=== PATIENT | female | born 2000 | race Caucasian/White ===

== ENCOUNTER 2024-05-08 14:55 | Emergency (ER) | payer OTHER, SELFPAY ==
[2024-05-08] VITALS (23 sets, daily range): BP systolic 100–135; BP diastolic 49–87; PULSE 84–107; RESP 0–24; TEMP 37.3; O2SAT 97–100; BMI 24.1
[2024-05-08 16:30] LABS: Basophils Absolute Auto 0.03 K/uL (0.00-0.30); Basophils Percent Auto 0.5 % (0.0-3.0); Hematocrit 41.1 % (33.0-51.0); Immature Granulocytes Abs Auto 0.01 K/uL (0.00-0.30); Immature Granulocytes Pct Auto 0.2 %; Lymphocytes Absolute Auto 1.48 K/uL (0.90-2.90); Lymphocytes Percent Auto 25.4 % (20-44); Mean Corpuscular HGB Conc 34 gm/dL (32-36); Mean Corpuscular Hemoglobin 30 pg (26-34); Mean Corpuscular Volume 89 fL (80-100); Monocytes Percent Auto 8.2 % (0.0-11.0); Neutrophils Absolute Auto 3.83 K/uL (1.7-7.0); Neutrophils Percent Auto 65.7 % (42.0-72.0); Platelet Count* 295 K/uL (140-440); RDW Coefficient of Variation % 11.4 % (11.5-15.5); Red Blood Count 4.64 m/uL (4.00-5.20); White Blood Count* 5.83 K/uL (4.50-11.00)
[2024-05-08 16:34] LABS: Troponin, Point-of-Care* 0.01 ng/ml (0.01-0.04)
[2024-05-08 16:44] LABS: Albumin* 5.1 g/dL (3.3-5.0); Chloride* 103 mmol/L (96-114); Potassium* 3.9 mmol/L (3.6-5.1); Sodium* 139 mmol/L (135-149)
[2024-05-08 16:45] LABS: Slide Review Reflex No
[2024-05-08 16:46] LABS: Creatinine* 0.6 mg/dL (0.5-1.5); Est. Creatinine Clearance* 111.92; Estimated Glomerular Filt Rate 131 ml/min
[2024-05-08 16:47] LABS: Alanine Aminotransferase* 171 U/L (4-35); Alkaline Phosphatase* 110 U/L (40-150); Anion Gap 12 mEq/L (7-15); Aspartate Amino Transferase* 55 U/L (12-35); Bilirubin Total* 1.1 mg/dL (0.1-1.5); Blood Urea Nitrogen* 15 mg/dL (5-24); Calcium* 10.4 mg/dL (8.4-10.6); Carbon Dioxide* 24 mmol/L (20-32); Glucose* 93 mg/dL (60-115); Total Protein* 8.1 g/dL (6.0-8.3)
[2024-05-08 16:48] LABS: Magnesium* 1.9 mg/dL (1.5-2.6)
[2024-05-08 16:51] LABS: D Dimer Quantitative* 0.33 ug/ml (0.00-0.50)
--- NOTE | 2024-05-08 16:55 | ED.GENADULT ---
HPI - General Adult General Time Seen by Provider: 16:56 Date Seen: 05/08/24 Chief complaint: Arrhythmia/Palpitations Stated complaint: Elevated heartrate Time Seen by Provider: 05/08/24 16:05 Source: patient Mode of arrival: ambulatory Limitations: no limitations History of Present Illness HPI narrative: Meg is a 23-year-old female past medical history includes anxiety presents emerged department via private car with friends with elevated heart rate. 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 primary care provider recommended a Holter monitor, she wore for 3-4 days, there was a reading of SVT at 4:00 p.m. registered at 190 heart rate. patient gets 2-3 episodes daily of this elevated heart rate. patient did take 0.5 mg and Xanax this morning, it is helped with her current symptoms. no history of any passing out or seizure activity associated with the elevated heart rate, she does get readings that are around 190 on her Apple watch. there is some cardiac disease with her grandfather and father, no history of any thyroid abnormalities. patient denies any fever chills, she denies any nausea vomiting or abdominal pain, no urinary complaints, her periods have been normal, she denies any drug use or alcohol use. Patient is scheduled to see cardiology in [place] over the next few weeks. Related Data Home Medications ?Medication ?Instructions ?Recorded ?Confirmed alprazolam 0.5 mg tablet (Xanax) 0.5 mg PO BID-TID PRN 05/08/24 05/08/24 melatonin 10 mg capsule 10 mg PO QHS 05/08/24 05/08/24 vilazodone 10 mg tablet (Viibryd) 10 mg PO DAILY 05/08/24 05/08/24 Previous Rx's ?Medication ?Instructions ?Recorded metoprolol succinate 25 mg 12.5 mg (1/2 x 25 mg) PO DAILY #14 05/08/24 tablet,extended release 24 hr tabs Allergies Allergy/AdvReac Type Severity Reaction Status Date / Time No Known Drug Allergies Allergy Verified 05/08/24 15:06 Review of Systems Status of ROS: Reports: 10 or more systems reviewed and unremarkable except as noted in History and below PFSH PFSH Social History Smoking Status: Never smoker Do you use any of these nicotine containing products: None How often do you have a drink containing alcohol: never How often do you have six or more drinks on one occasion: Never AUDIT-C Alcohol total score: 0 Non-prescribed substance use: denies use Exam Narrative: Exam Narrative: general: no obvious distress sitting comfortably HEENT: pupils equal round reactive to light, extraocular muscles intact heart: sinus tachycardia lungs: clear to auscultation bilaterally abdomen: was soft nontender neuro: alert awake and oriented x3, GCS 15 pysch: mildly anxious. normal mood and affect Const: Vital Signs, click to edit/add: Vital Signs - 24 hr 05/08/24 15:08 05/08/24 15:30 05/08/24 15:32 Temperature 99.1 F Pulse Rate 98 97 Pulse Rate [Pulse Oximeter] 98 Respiratory Rate 18 0 L 7 L Blood Pressure 135/76 Blood Pressure [Ri ght Upper Arm] 109/72 Pulse Oximetry 98 98 97 Oxygen Delivery Me thod Room Air 05/08/24 15:45 05/08/24 16:00 05/08/24 16:02 Temperature Pulse Rate 89 98 90 Pulse Rate [Pulse Oximeter] Respiratory Rate 14 11 L 16 Blood Pressure 100/63 Blood Pressure [Ri ght Upper Arm] Pulse Oximetry 100 98 100 Oxygen Delivery Me thod 05/08/24 16:15 05/08/24 16:30 05/08/24 16:42 Temperature Pulse Rate 107 H 85 91 Pulse Rate [Pulse Oximeter] Respiratory Rate 13 11 L 8 L Blood Pressure 111/87 Blood Pressure [Ri ght Upper Arm] Pulse Oximetry 100 100 100 Oxygen Delivery Me thod 05/08/24 16:45 05/08/24 17:00 05/08/24 17:02 Temperature Pulse Rate 99 92 100 Pulse Rate [Pulse Oximeter] Respiratory Rate 21 12 9 L Blood Pressure 109/58 L Blood Pressure [Ri ght Upper Arm] Pulse Oximetry 99 100 98 Oxygen Delivery Me thod 05/08/24 17:03 05/08/24 17:15 05/08/24 17:30 Temperature Pulse Rate 95 91 99 Pulse Rate [Pulse Oximeter] Respiratory Rate 9 L 11 L 6 L Blood Pressure Blood Pressure [Ri ght Upper Arm] Pulse Oximetry 99 100 97 Oxygen Delivery Me thod 05/08/24 17:31 05/08/24 17:49 05/08/24 18:00 Temperature Pulse Rate 96 95 97 Pulse Rate [Pulse Oximeter] Respiratory Rate 15 21 24 Blood Pressure 107/64 Blood Pressure [Ri ght Upper Arm] Pulse Oximetry 98 98 100 Oxygen Delivery Me thod 05/08/24 18:02 05/08/24 18:15 05/08/24 18:30 Temperature Pulse Rate 101 H 99 86 Pulse Rate [Pulse Oximeter] Respiratory Rate 9 L 18 23 Blood Pressure 100/53 L Blood Pressure [Ri ght Upper Arm] Pulse Oximetry 100 100 100 Oxygen Delivery Me thod 05/08/24 18:31 05/08/24 18:45 Temperature Pulse Rate 84 Pulse Rate [Pulse Oximeter] Respiratory Rate 10 L 14 Blood Pressure 122/49 L Blood Pressure [Ri ght Upper Arm] Pulse Oximetry 99 Oxygen Delivery Me thod Course Course ED Course: Aidet performed, vitals show mild tachycardia, otherwise stable, workup will include SHAVL-[id number] nasopharyngeal swab, EKG, CBC, TSH, D-dimer, magnesium, CMP, UDS, serum test, XR chest PA and lateral, will likely reach out to Cardiology Jocelin Cormier for further recommendations. Patient's previous Holter monitor did show a run of SVT at 190. Patient would not require an IV at this time, she will receive 0.5 mg oral Ativan for her anxiety, differential diagnosis include but not limited to psychosocial stress, thyroid abnormalities, heart failure, atrial fibrillation, SVT, ventricular tachycardia and ventricular fibrillation. This includes life-threatening complications of V-tach and VFib. Reevaluation(s) Reevaluation #1: EKG showed normal sinus rhythm, no acute ST changes, point of care troponin is negative, CBC showed no leukocytosis or anemia, comprehensive metabolic panel showed normal electrolytes and renal function, normal magnesium, UDS negative, viral swabs negative, test negative, D-dimer within normal limits, imaging showed no acute cardiopulmonary process. Patient had no abnormalities noted on monitor technician, she is feeling better after above care given. Spoke with Cardiology Dr. Parham, recommendations were for starting low dose Metoprolol succinate 12.5 mg once daily since patient's SC interval was within normal limits, and they will contact her for follow up with them. Discussed with patient she was in agreement this plan, return precautions give. Vital Signs Vital signs: Initial Vital Signs Temperature 99.1 F 05/08/24 15:08 Temperature Source Temporal Artery Scan 05/08/24 15:08 Pulse Rate 98 05/08/24 15:08 Pulse Rhythm Regular 05/08/24 15:08 Respiratory Rate 18 05/08/24 15:08 Blood Pressure 109/72 05/08/24 15:08 Blood Pressure Mean 84 05/08/24 15:08 Blood Pressure Position Sitting 05/08/24 15:08 Pulse Oximetry 98 05/08/24 15:08 Oxygen Delivery Method Room Air 05/08/24 15:08 Vital Signs Temperature 99.1 F 05/08/24 15:08 Pulse Rate 98 05/08/24 15:08 Respiratory Rate 18 05/08/24 15:08 Blood Pressure 109/72 05/08/24 15:08 Pulse Oximetry 98 05/08/24 15:08 Oxygen Delivery Method Room Air 05/08/24 15:08 Temperature 99.1 F 05/08/24 15:08 Pulse Rate 84 05/08/24 18:31 Respiratory Rate 14 05/08/24 18:45 Blood Pressure 122/49 L 05/08/24 18:31 Pulse Oximetry 99 05/08/24 18:31 Oxygen Delivery Method Room Air 05/08/24 15:08 Medications Administered Medications: Discontinued Medications Generic Name Dose Route Start Last Admin Trade Name Freq PRN Reason Stop Dose Admin Lorazepam 0.5 mg 05/08/24 16:54 05/08/24 17:01 Lorazepam 0.5 Mg Tablet PO 05/08/24 16:55 0.5 mg ONCE ONE Administration Medical Decision Making Lab Data Labs: Lab Results 05/08/24 05/08/24 05/08/24 Range/Units 16:11 16:20 16:24 WBC 5.83 (4.50-11.00) K/uL RBC 4.64 (4.00-5.20) m/uL Hgb 14.0 (12.0-16.0) gm/dL Hct 41.1 (33.0-51.0) % MCV 89 (80-100) fL MCH 30 (26-34) pg MCHC 34 (32-36) gm/dL RDW Coeff of Zita 11.4 L (11.5-15.5) % Plt Count 295 (140-440) K/uL Neut % (Auto) 65.7 (42.0-72.0) % Lymph % (Auto) 25.4 (20-44) % Trinity % (Auto) 8.2 (0.0-11.0) % Eos % (Auto) 0.0 (0.0-7.0) % Baso % (Auto) 0.5 (0.0-3.0) % Neut # (Auto) 3.83 (1.7-7.0) K/uL Lymph # (Auto) 1.48 (0.90-2.90) K/uL Trinity # (Auto) 0.50 (0.00-0.90) K/UL Eos # (Auto) 0.00 (0.00-0.50) K/uL Baso # (Auto) 0.03 (0.00-0.30) K/uL Abs Immat Gran (auto) 0.01 (0.00-0.30) K/uL Imm/Tot Granulo (auto) 0.2 % D-Dimer Quant (PE/DVT) 0.33 (0.00-0.50) ug/ml Sodium 139 (135-149) mmol/L Potassium 3.9 (3.6-5.1) mmol/L Chloride 103 (96-114) mmol/L Carbon Dioxide 24 (20-32) mmol/L Anion Gap 12 (7-15) mEq/L BUN 15 (5-24) mg/dL Creatinine 0.6 (0.5-1.5) mg/dL Estimated Creat Clear 111.92 Estimated GFR 131 ml/min Glucose 93 (60-115) mg/dL Calcium 10.4 (8.4-10.6) mg/dL Magnesium 1.9 (1.5-2.6) mg/dL Total Bilirubin 1.1 (0.1-1.5) mg/dL AST 55 H (12-35) U/L ALT 171 H (4-35) U/L Alkaline Phosphatase 110 (40-150) U/L Total Protein 8.1 (6.0-8.3) g/dL Albumin 5.1 H (3.3-5.0) g/dL TSH 0.968 (0.270-4.20) uIU/mL HCG, Qual (Negative) HCG, Quant Urine Opiates Screen (Negative) Ur Oxycodone Screen (Negative) Urine Methadone Screen (Negative) Ur Barbiturates Screen (Negative) U Tricyclic Antidepress (Negative) Ur Phencyclidine Scrn (Negative) Ur Amphetamines Screen (Negative) U Methamphetamines Scrn (Negative) U Benzodiazepines Scrn (Negative) Urine Cocaine Screen (Negative) U Marijuana (THC) Screen (Negative) Ur Drug Screen Comment SARS-CoV-2 (PCR) Negative SARS-CoV-2 (Negative) Influenza Type A (PCR) Negative PCR FLU A (Negative) Influenza Type B (PCR) Negative PCR FLU B (Negative) RSV (PCR) Negative PCR RSV (Negative) POC Troponin I 0.01 (0.01-0.04) ng/ml 05/08/24 05/08/24 Range/Units 16:37 16:56 WBC (4.50-11.00) K/uL RBC (4.00-5.20) m/uL Hgb (12.0-16.0) gm/dL Hct (33.0-51.0) % MCV (80-100) fL MCH (26-34) pg MCHC (32-36) gm/dL RDW Coeff of Zita (11.5-15.5) % Plt Count (140-440) K/uL Neut % (Auto) (42.0-72.0) % Lymph % (Auto) (20-44) % Trinity % (Auto) (0.0-11.0) % Eos % (Auto) (0.0-7.0) % Baso % (Auto) (0.0-3.0) % Neut # (Auto) (1.7-7.0) K/uL Lymph # (Auto) (0.90-2.90) K/uL Trinity # (Auto) (0.00-0.90) K/UL Eos # (Auto) (0.00-0.50) K/uL Baso # (Auto) (0.00-0.30) K/uL Abs Immat Gran (auto) (0.00-0.30) K/uL Imm/Tot Granulo (auto) % D-Dimer Quant (PE/DVT) (0.00-0.50) ug/ml Sodium (135-149) mmol/L Potassium (3.6-5.1) mmol/L Chloride (96-114) mmol/L Carbon Dioxide (20-32) mmol/L Anion Gap (7-15) mEq/L BUN (5-24) mg/dL Creatinine (0.5-1.5) mg/dL Estimated Creat Clear Estimated GFR ml/min Glucose (60-115) mg/dL Calcium (8.4-10.6) mg/dL Magnesium (1.5-2.6) mg/dL Total Bilirubin (0.1-1.5) mg/dL AST (12-35) U/L ALT (4-35) U/L Alkaline Phosphatase (40-150) U/L Total Protein (6.0-8.3) g/dL Albumin (3.3-5.0) g/dL TSH (0.270-4.20) uIU/mL HCG, Qual Negative (Negative) HCG, Quant Cancelled Urine Opiates Screen Negative (Negative) Ur Oxycodone Screen Negative (Negative) Urine Methadone Screen Negative (Negative) Ur Barbiturates Screen Negative (Negative) U Tricyclic Antidepress Negative (Negative) Ur Phencyclidine Scrn Negative (Negative) Ur Amphetamines Screen Negative (Negative) U Methamphetamines Scrn Negative (Negative) U Benzodiazepines Scrn Negative (Negative) Urine Cocaine Screen Negative (Negative) U Marijuana (THC) Screen Negative (Negative) Ur Drug Screen Comment See Note SARS-CoV-2 (PCR) (Negative) Influenza Type A (PCR) (Negative) Influenza Type B (PCR) (Negative) RSV (PCR) (Negative) POC Troponin I (0.01-0.04) ng/ml Discharge Plan Discharge Clinical Impression: Palpitations, Anxiety Patient Disposition: Home, Self-Care Condition: Improved Instructions: Heart Palpitations (ED), Anxiety (ED) Additional Instructions: Will be contacted by [facility] for follow-up, to take metoprolol succinate 12.5 mg daily. Return if any persistent or worsening symptoms. Prescriptions: New metoprolol succinate 25 mg tablet extended release 24 hr 12.5 mg PO DAILY Qty: 14 0RF No Action vilazodone [Viibryd] 10 mg tablet 10 mg PO DAILY Rx Instructions: must administer with a meal/food alprazolam [Xanax] 0.5 mg tablet 0.5 mg PO BID-TID PRN melatonin 10 mg capsule 10 mg PO QHS Follow Up/Referrals: Provider,Not a Local [Primary Care Provider] - Stand Alone Forms: [employer] Info Instructions
[2024-05-08 16:57] LABS: Amphetamine Screen Urine Negative (Negative); Barbiturate Screen Urine Negative (Negative); Benzodiazepines Screen Urine Negative (Negative); Cannabinoid Screen Urine Negative (Negative); Cocaine Screen Urine Negative (Negative); Methadone Screen Urine Negative (Negative); Methamphetamines Screen Urine Negative (Negative); Opiate Screen Urine Negative (Negative); Oxycodone Screen Urine Negative (Negative); Phencyclidine Screen Urine Negative (Negative); Tricyclic Antidepressant Urine Negative (Negative)
[2024-05-08] MEDS: LORazepam 0.5 MG TABLET PO (17:01)
[2024-05-08 17:14] LABS: HCG Qualitative Serum* Negative (Negative)
--- OUTSIDE RECORDS SUMMARY | 2024-05-08 17:18 | XMS_ITS | Patient Health Record ---
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 APPT- [facility] SVT Diagnosis 1 Supraventricular tac hycardia, unspecified (I47.10) Referring Provider First Name Elif Referring Provider Last Name Davidson Referring Provider Speciality Family Med icine Referred Organization [facility] Referred Provider Roque Grant Referred Address [address],[place],[address], Referred Provider Specialty Cardiology Referral Priority Routine Medications Medication SIG (Take, Route, Frequency, Duration) Notes Start Date End Date Status Azithromycin 200 MG/5ML 10 ml Orally Once a day for 5 days 07/12/2013 Active Cheratussin AC 100-10 MG/5ML 2.5 - 5 ml as needed Orally every 6 hrs for 5 days 07/12/2013 Active Cephalexin *please review f or potential update for e-prescription and drug interaction check* Active dexAMETHasone *please review f or potential update for e-prescription and drug interaction check* Active POLYETHYLENE GLYCOL 3350 142 MG/ML Oral Solution POLYETHYLENE GLYCOL 3350 142 MG/ML Oral Solution 11/17/2013 Active Ibuprofen Ibuprofen 01/27/2014 Active ZyrTEC Childrens Allergy *please review for potential update for e-prescription and drug interaction check* Active Plan Of Treatment Pending Test Test Name Order Date Strep Screen 07/12/2013 Insurance Providers Payer Name Payer Address Payer Phone Subscriber Number Group Number Insured Name Patient Relationship to Insured Coverage Start Date Coverage End Date [employer] [address] [place] [phone] [id number] Meg Orellana Self - patient is the insured Medical (General) History Medical History History ICD Code allergies
[2024-05-08 17:27] LABS: PCR FLU A Negative PCR FLU A (Negative); PCR FLU B Negative PCR FLU B (Negative); PCR RSV Negative PCR RSV (Negative); SARS PCR* Negative SARS-CoV-2 (Negative)
[2024-05-08 18:17] LABS: Thyroid Stimulating Hormone* 0.968 uIU/mL (0.270-4.20)
== END 2024-05-08 18:51 | disposition home or self-care (01) ==
PROVIDERS: Emergency Provider Student in an Organized Health Care Education/Training Program
DX: R00.2 Palpitations (principal); F41.9 Anxiety disorder, unspecified
CPT/HCPCS: 36415; 71046; 80053; 80306; 83735; 84443; 84484; 84702; 84703; 85025; 85379; 87631; 99283; 99284; A9270

== ENCOUNTER 2024-10-08 16:14 | Emergency (ER) | payer BC, SELFPAY ==
--- OUTSIDE RECORDS SUMMARY | 2024-06-26 09:45 | XMS_ITS ---
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 Name Role Phone Elif Feng Primary Care Provider Unavail Adiel Mitchell [phone] Encounters Encounter Location Date Provider Diagnosis [facility] [address] [place] [address] 06/26/2024 Adiel Sparks Plan Of Treatment No Information Progress Notes * Sylvain SOOLeDOB: 3 (24 yo F)Acc No.[id number]:06/26/2024 Patient: Meg Crzu Provider: Gely Sparks MD :2000 A ge:23 Y S ex:Female Date:06/26/2024 Address[place], [id number] Pcp:KURTIS Esquivel Check In:02:43 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
--- OUTSIDE RECORDS SUMMARY | 2024-06-27 05:15 | XMS_ITS ---
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 Name Role Phone Elif Feng Primary Care Provider Adiel Guthrie [phone] Encounters Encounter Location Date Provider Diagnosis [facility] [address] [place] [address] 06/27/2024 Adiel Sparks Plan Of Treatment No Information Progress Notes * Sylvain SOLOeDOB: [birth year] (24 yo F)Acc No.[id number]:06/27/2024 Patient: Meg Cruz Provider: Gely Sparks MD :2000 A ge:23 Y S ex:Female Date:06/27/2024 Address[place] Pcp:KURTIS Esquivel Check In:10:03 AM CSTCheck O ut:10:05 AM 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
--- OUTSIDE RECORDS SUMMARY | 2024-10-08 16:17 | XMS_ITS | Patient Health Record ---
Author Organization [facility] Address [address] [place] [address] Care Team Providers Care Rag Baler Name Role Phone Elif Feng Primary Care Provider Unavail able Adiel Sparks Unavailable [phone] Allergies No Known Allergies Results Component Value Reference Range Notes Echo Complete [id number] Reviewed date:06/26/2024 02:29:14 PM Interpretation: Performing Lab: Notes/Report: Stress Test, [id number] Reviewed date:06/26/2024 02:28:49 PM Interpretation: Performing Lab: Notes/Report: Echo Complete [id number] Reviewed date:07/09/2024 04:11:04 PM Interpretation: Performing Lab: Notes/Report: Cardiopulmonary Services Name: MEG SOLO Study Date: 06/27/2024 : 2000 Patient Location: [facility] Age: 23 yrs Gender: Female HR: 78 Reason For Study: palp, cp, sob Interpretation Summary The left ventricle is normal in size. Left ventricular systolic function is normal. Left Ventricular Function is estimated to be 55-60%. There is trace tricuspid regurgitation. There is no pericardial effusion. Recommendations Will continue to follow regularly. Continue present medication. Left Ventricle The left ventricle is normal in size. There is normal left ventricular wall thickness. Left ventricular systolic function is normal. Left Ventricular Function is estimated to be 55-60%. Right Ventricle The right ventricle is normal size. Atria The left atrial size is normal. Right atrial size is normal. Pericardium/Pleural There is no pericardial effusion. There is no pleural effusion. Mitral Valve The mitral valve leaflets appear normal. There is no evidence of stenosis, fluttering, or prolapse. Aortic Valve The aortic valve is normal in structure and function. Tricuspid Valve The tricuspid valve is normal. There is trace tricuspid regurgitation. Pulmonic Valve The pulmonic valve leaflets are thin and pliable; valve motion is normal. Trace pulmonic valvular regurgitation. MMode/2D Measurements & Calculations RVDd: 3.0 cm LVIDd: 3.1 cm FS: 28.2 % IVSd: 0.62 cm LVIDs: 2.2 cm EDV(Teich): 38.9 ml ESV(Teich): 17.1 ml EF(Teich): 55.9 % Ao root diam: 2.6 cm asc Aorta Diam: 2.3 cm LVOT diam: 1.9 cm Ao root area: 5.2 cm2 LVOT area: 3.0 cm2 ACS: 1.8 cm LA dimension: 2.1 cm Time Measurements Aortic HR: 76.7 BPM MM HR: 79.5 BPM Doppler Measurements & Calculations MV E max vlad: 116.9 cm/sec MV dec slope: 978.7 cm/sec2 Ao V2 max: 121.7 cm/sec MV A max vlad: 61.3 cm/sec MV dec time: 0.12 sec Ao max P.9 mmHg MV E/A: 1.9 Ao V2 mean: 90.0 cm/sec Ao mean P.6 mmHg Ao V2 VTI: 25.2 cm ROSA(I,D): 2.5 cm2 ROSA(V,D): 2.6 cm2 LV V1 max P.5 mmHg CO(LVOT): 4.9 l/min PA V2 max: 73.0 cm/sec LV V1 mean P.1 mmHg SV(LVOT): 63.7 ml PA max P.1 mmHg LV V1 max: 106.4 cm/sec LV V1 mean: 66.3 cm/sec LV V1 VTI: 21.6 cm PI end-d vlad: 178.3 cm/sec TR max vlad: 215.9 cm/sec RAP systole: 10.0 mmHg TR max P.7 mmHg RVSP(TR): 28.7 mmHg Ordering Physician: Adiel Sparks Referring Physician: Adiel Sparks Performed By: Sherlyn Palm, Echo Echo Complete [id number] Reviewed date:07/09/2024 04:11:04 PM Interpretation: Performing Lab: Notes/Report: [id number] Reason For Referral Reason Appt 06/26/24 SVT Diagnosis 1 Supraventricular tac hycardia, unspecified (I47.10) Referring Provider First Name Elif Referring Provider Last Name Davidson Referring Provider Speciality [facility] Referred Organization [facility] Referred Provider Adiel Sparks Referred Address [address] [place] [address],[place], [place],[address], Referred Provider Specialty Cardiology Referral Priority Routine Medications Medication SIG (Take, Route, Frequency, Duration) Notes Start Date End Date Status Vilazodone HCl 20 MG Tablet TAKE 0.5 Tablet BY MOUTH ONCE DAILY WITH FOOD Oral; Duration: 90 days Active Lo Loestrin Fe 1 MG-10 MCG / 10 MCG Tablet TAKE 1 Tablet BY MOUTH ONCE DAILY Oral; Duration: 28 Days Active Metoprolol Succinate ER 25 MG Tablet Extended Release 24 Hour 0.5 tab Oral Once a day; Duration: 30 days Active ALPRAZolam 0.5 MG Tablet TAKE 1 Tablet B Y MOUTH ONCE DAILY NEEDED FOR ANXIETY Oral; Duration: 30 days Active Social History Tobacco Use: Social History Observation Description Date Details (start date - stop date) Former Smoker NA - NA Social History Drugs/Alcohol: Social Info Question Answer Notes Caffeine Intake: 1 cup, not jason y, couple days out of the week Tobacco Use: Social Info Question Answer Notes Tobacco Control (Standard) Tobacco use: Former smoker How long has it been since you last smoked? 6-12 months Additional Details Category Social Info Options Details Drugs/Alcohol: Do you drink alcohol? 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 [employer] ;Social History(Smoking(MU):):no ; Problems Problem Type SNOMED Code ICD Code Onset Dates Problem Status W/U Status Risk Notes Problem Dyspnea (619192122) SOB (shortne ss of breath) (R06.02) Active confirmed Problem Palpitations (39701651) Palpitation (R00.2) Active confirmed Problem Chest pain (92640033) Chest pain (R07.9) Active confirmed Problem Postural orthostatic tachycardia syndrome (disorder) (411241014) POTS (postural orthostatic tachycardia syndrome) (G90.A) Active confirmed Problem Supraventricular tachycardia (3458813) SVT (supraventricu lar tachycardia) (I47.10) Active confirmed Vital Signs Heart Rate 87 /min 06/27/2024 Oximetry 92 % 06/27/2024 Blood pressure diastolic 72 mm Hg 06/27/2024 Weight-kg 60.15 kg 06/27/2024 Height 58 in 06/27/2024 Blood pressure systolic 108 mm Hg 06/27/2024 Weight 132.6 lbs 06/27/2024 BMI 27.71 kg/m2 06/27/2024 Encounters Encounter Location Date Provider Diagnosis [facility] [address] [address] 06/26/2024 Adiel Sparks [facility] [address] [address] 06/27/2024 Adiel Sparks [facility] [address] [place] [address], [place] [address] 06/26/2024 Adiel Sparks POTS (postural orthostatic tachycardia syndrome) G90.A ; SVT (supraventricular tachycardia) I47.10 ; Palpitation R00.2 ; Chest pain R07.9 and SOB (shortness of breath) R06.02 [facility] [address] [place] [address], [place] [address] 06/27/2024 Adiel Sparks POTS (postural orthostatic tachycardia syndrome) G90.A ; SVT (supraventricular tachycardia) I47.10 ; Palpitation R00.2 ; Chest pain R07.9 and SOB (shortness of breath) R06.02 Assessments Encounter Date Diagnosis (ICD Code) Assessment Notes Treatment Notes Treatment Clinical Notes Section Notes 06/26/2024 POTS (postural orthostatic tachycardia syndrome) (ICD-10 - G90.A) Talked about the potential diagnosis of POTS. As part of treatment frankel we talked about hydration compression stockings and salt intake. EKG in office today indication is palpitation shortness of breath chest tightness chest pain findings are sinus rhythm heart rate is 92 essentially normal EKG 06/26/2024 SVT (supraventricul ar tachycardia) (ICD-10 - I47.10) Talked about a potential diagnosis of SVT. It is not clear at this point. She is feeling better with beta blocking agent. For now continue. Eventually she will require evaluation by electrophysiolog y. EKG in office today indication is palpitation shortness of breath chest tightness chest pain findings are sinus rhythm heart rate is 92 essentially normal EKG 06/27/2024 POTS (postural orthostatic tachycardia syndrome) (ICD-10 - G90.A) Talked about the potential diagnosis of POTS. As part of treatment frankel we talked about hydration compression stockings and salt intake. 06/27/2024 SVT (supraventricul ar tachycardia) (ICD-10 - I47.10) Talked about a potential diagnosis of SVT. She is feeling better with beta blocking agent. For now continue. Eventually she will require evaluation by electrophysiolog y. 06/27/2024 Palpitation (ICD-10 - R00.2) 06/26/2024 Palpitation (ICD-10 - R00.2) EKG in office today indication is palpitation shortness of breath chest tightness chest pain findings are sinus rhythm heart rate is 92 essentially normal EKG 06/26/2024 Chest pain (ICD-10 - R07.9) We talked about treadmill stress test. EKG in office today indication is palpitation shortness of breath chest tightness chest pain findings are sinus rhythm heart rate is 92 essentially normal EKG 06/27/2024 Chest pain (ICD-10 - R07.9) The patient had a exercise stress test. It was nondiagnostic test due to suboptimal heart rate response. She was only able to obtain 80% of maximal age-predicted heart rate. But there was no ST depression noted. 06/27/2024 SOB (shortness of breath) (ICD-10 - R06.02) Echo from June 2024 showed ejection fraction 55 to 60%. There was no significant valve disease. There was no pericardial effusion. 06/26/2024 SOB (shortness of breath) (ICD-10 - R06.02) Obtain echocardiogram. EKG in office today indication is palpitation shortness of breath chest tightness chest pain findings are sinus rhythm heart rate is 92 essentially normal EKG 06/26/2024 Other Marc Tolentino am scribing for Adiel Sparks MD. Adiel Tolentino MD, personally performed the services prescribed in this documentation , as scribed by Mrac Cade and it is both accurate and complete. EKG in office today indication is palpitation shortness of breath chest tightness chest pain findings are sinus rhythm heart rate is 92 essentially normal EKG 06/27/2024 Other Marc Tolentino am scribing for Adiel Sparks MD. Adiel Tolentino MD, personally performed the services prescribed in this documentation , as scribed by Marc Cade and it is both accurate and complete. Plan Of Treatment Pending Test Test Name Order Date Electrocardiogram (EKG) - 96503 06/27/19 25 Strep Screen 07/12/2013 Insurance Providers Payer Name Payer Address Payer Phone Subscriber Number Group Number Insured Name Patient Relationship to Insured Coverage Start Date Coverage End Date [employer] [address] [place] [phone] [id number] Meg Solo Self - patient is the insured Medical (General) History Medical History History ICD Code Problem:Constipation (disorder) , Status :: Active Depression anxiety covid vaccinated Surgical History Surgery Date(Month/Year) right ankle- tendon repair Hospitalization History Reason Date(Month/Year) Holter and EKG @ per [facility] Cede[facility] 5
[2024-10-08 16:18] VITALS: BP 123/76; PULSE 94; RESP 14; TEMP 36.8; O2SAT 99; BMI 20.1
--- NOTE | 2024-10-08 18:09 | ED_ITS ---
HPI - General Adult General Time Seen by Provider: 18:09 Date Seen: 10/08/24 Chief complaint: Anxiety Stated complaint: Heart issues, sob, chest pain Time Seen by Provider: 10/08/24 18:03 Source: patient, RN notes reviewed and old records reviewed Mode of arrival: ambulatory Limitations: no limitations History of Present Illness HPI narrative: This 24-year-old female with underlying history of episode of SVT earlier with history of palpitations and anxiety is coming in with chest pain. She notes over the last week she would have some chest discomfort, this was more consistent with her usual chest discomfort with her anxiety. Today while at work at [employer], she was on lunch break, and started noticing a squeezing- type chest pain in her chest. It would come and go, at times felt severe. Around 3:00 p.m. or so, she was talking with coworkers and started to feel short of breath in dizzy with it. She tried to call the Urgent Care to go there but they requested she come here. She is overall feeling better. She has not been sick with anything, no cough or cold symptoms. She is not on contraceptives. They are very careful in use barrier protection all the time. No GI symptoms with this. Unfortunately due to the acuity and volume in the ED, patient has had a bit of weight to get back into an ER room. She does not feel her heart rate was fast during this, actually her pulse was low with the taking of 25 mg of metoprolol. She was seen here in April when a Holter monitor did show a short run of SVT at 190 beats per minute. She was started on metoprolol 12.5 mg. She had difficulty with insurance in being able to see a activities manager here in [place], did see 1 when she was home for spring at her [facility]. She states she had an echo. The did not tell her to do anything differently, did increase her metoprolol to 25 mg daily. She admits she has been taking 12.5 until recently she went back up to 25. She wonders if this could of cause some of her symptoms today. She was told by Cardiology at home that she would need to see an rn behavioral health. She has had difficulty between insurance issues and graduation in making this happen. She states that now things have stabilized that she plans on making this a priority. Related Data Home Medications ?Medication ?Instructions ?Recorded ?Confirmed melatonin 10 mg capsule 10 mg PO QHS 05/08/24 vilazodone 10 mg tablet (Viibryd) 10 mg PO DAILY 05/0810/08/24 Previous Rx's ?Medication ?Instructions ?Recorded metoprolol succinate 25 mg 12.5 mg (1/2 x 25 mg) PO CHOLO BRAN #14 05/08/24 tablet,extended release 24 hr tabs Allergies Allergy/AdvReac Type Severity Reaction Status Date / Time No Known Drug Allergies Allergy Verified 10/08/24 16:24 Review of Systems Status of ROS: Reports: 6 or more systems reviewed and unremarkable except as noted in History and below [facility] Medical History (Updated 10/08/24 @ 19:42 by Keira Sanders MD) Anxiety disorder ?F41.9 - Anxiety disorder, unspecified (ICD-10) Social History Smoking Status: Never smoker Do you use any of these nicotine containing products: None How often do you have a drink containing alcohol: never How often do you have six or more drinks on one occasion: Never AUDIT-C Alcohol total score: 0 Non-prescribed substance use: denies use Exam Const: Vital Signs, click to edit/add: Vital Signs - 24 hr 10/08/24 16:18 10/08/24 18:20 10/08/24 18:47 Temperature 98.3 F Pulse Rate 69 Pulse Rate [Pulse Oximeter] 94 Respiratory Rate 14 13 Blood Pressure [Ri ght Upper Arm] 123/76 Pulse Oximetry 99 100 100 Oxygen Delivery Me thod Room Air This 24-year-old female is alert, interactive, no apparent distress. She is very pleasant and well CT. Seen in exam room 2. Does not strike me as overly anxious on talking to her. Pupils equal round reactive, sclera clear, extraocular muscles intact. Symmetrical facial function. Neck is supple, no adenopathy, no thyromegaly masses or nodules. Lungs are clear, good air entry, no wheezing crackles, no tachypnea, no accessory muscle use. CV regular rate and rhythm, no murmur, normal S1-S2, no S3-S4. Abdomen is soft, nontender, nondistended, no organomegaly, no rebound or guarding. No lower extremity edema. Documenting provider has reviewed patient's vital signs: yes Course Course ED Course: Patient had an EKG on arrival at 4:32 p.m. which was normal. Will have nursing staff update an EKG. She will be monitored on pulse oximetry and cardiac monitoring. Will get a full complement of labs including kidney and liver function, CBC, troponin, electrolytes. Will also consider a D-dimer. She has hemodynamic stability. This certainly could be anxiety but will rule out other etiologies as well. Will start with a portable chest x-ray but if D-dimer is significantly elevated we obviously will do a chest CT PE protocol. Reevaluation(s) Time of Reevaluation #1: 19:35 Reevaluation #1: Reviewed with Wendi that her labs are certainly reassuring. Troponin is normal, D-dimer is normal. We have seen no evidence of any arrhythmia while being monitored here. She admitted that she googled her symptoms and angina came up. Patient is worried that she is going to from these symptoms. She does endorse that she will be starting therapy for her anxiety which I highly encourage. We reviewed that her EKGs and troponin were normal, would be extremely unlikely at her age to have ischemic cardiac disease. Vital Signs Vital signs: Initial Vital Signs Temperature 98.3 F 10/08/24 16:18 Temperature Source Temporal Artery Scan 10/08/24 16:18 Pulse Rate 94 10/08/24 16:18 Respiratory Rate 14 10/08/24 16:18 Blood Pressure 123/76 10/08/24 16:18 Blood Pressure Mean 91 10/08/24 16:18 Blood Pressure Position Sitting 10/08/24 16:18 Pulse Oximetry 99 10/08/24 16:18 Oxygen Delivery Method Room Air 10/08/24 16:18 Vital Signs Temperature 98.3 F 10/08/24 16:18 Pulse Rate 94 10/08/24 16:18 Respiratory Rate 14 10/08/24 16:18 Blood Pressure 123/76 10/08/24 16:18 Pulse Oximetry 99 10/08/24 16:18 Oxygen Delivery Method Room Air 10/08/24 16:18 Temperature 98.3 F 10/08/24 16:18 Pulse Rate 69 10/08/24 18:47 Respiratory Rate 13 10/08/24 18:47 Blood Pressure 123/76 10/08/24 16:18 Pulse Oximetry 100 10/08/24 18:47 Oxygen Delivery Method Room Air 10/08/24 16:18 Medical Decision Making Lab Data Lab results reviewed: Yes I reviewed the patient's lab results Labs: Lab Results 10/08/24 10/08/24 Range/Units 18:20 18:35 WBC 6.95 (4.50-11.00) K/uL RBC 4.72 (4.00-5.20) m/uL Hgb 14.1 (12.0-16.0) gm/dL Hct 41.3 (33.0-51.0) % MCV 88 (80-100) fL MCH 30 (26-34) pg MCHC 34 (32-36) gm/dL RDW Coeff of Zita 11.8 (11.5-15.5) % Plt Count 272 (140-440) K/uL Neut % (Auto) 68.3 (42.0-72.0) % Lymph % (Auto) 23.0 (20-44) % Vernon % (Auto) 7.9 (0.0-11.0) % Eos % (Auto) 0.4 (0.0-7.0) % Baso % (Auto) 0.3 (0.0-3.0) % Neut # (Auto) 4.74 (1.7-7.0) K/uL Lymph # (Auto) 1.60 (0.90-2.90) K/uL Vernon # (Auto) 0.50 (0.00-0.90) K/UL Eos # (Auto) 0.03 (0.00-0.50) K/uL Baso # (Auto) 0.02 (0.00-0.30) K/uL Abs Immat Gran (auto) 0.01 (0.00-0.30) K/uL Imm/Tot Granulo (auto) 0.1 % D-Dimer Quant (PE/DVT) < 0.27 (0.00-0.50) ug/ml Sodium 138 (135-149) mmol/L Potassium 3.8 (3.6-5.1) mmol/L Chloride 104 (96-114) mmol/L Carbon Dioxide 25 (20-32) mmol/L Anion Gap 9 (7-15) mEq/L BUN 12 (5-24) mg/dL Creatinine 0.5 (0.5-1.5) mg/dL Estimated Creat Clear 181.98 Estimated GFR 136 ml/min Glucose 98 (60-115) mg/dL Lactate 1.1 (0.5-1.9) mmol/L Calcium 9.9 (8.4-10.6) mg/dL Magnesium 2.0 (1.5-2.6) mg/dL Total Bilirubin 1.0 (0.1-1.5) mg/dL AST 41 H (12-35) U/L ALT 38 H (4-35) U/L Alkaline Phosphatase 86 (40-150) U/L Troponin I < 0.01 (0.01-0.04) ng/mL C-Reactive Protein < 0.5 L (0.5-1.0) mg/dL NT-Pro-B Natriuret Pep < 20 (See Note) pg/mL Total Protein 8.5 H (6.0-8.3) g/dL Albumin 5.0 (3.3-5.0) g/dL Imaging Data Chest x-ray: Attestation: I have reviewed the pertinent imaging results. My impression: I see no acute pathology on my preliminary review. Radiologist's impression: Patient: NEETA OSLO Facility:?[facility] Patient ID:?[id number] Site Patient ID:?[id number]. Site :?[id number] Study:?XRay-Chest 1V-10/08/2024 6:34:35 PM Ordering Physician:?Tommy Crockett Final Report: INDICATION: Chest pain. TECHNIQUE: Chest 1 views. COMPARISON: May 08, 2019. FINDINGS: Cardiovascular and mediastinum: Heart size and vasculature are normal in caliber and appearance. Lungs and pleural spaces: Lungs are clear. No sign of infiltrate or mass. No sign of pleural effusion. No pneumothorax. Bones and soft tissues: No significant findings. IMPRESSION: No acute or significant findings. Dictated by Kenneth Hernandez MD @ 10/08/2024 6:41:08 PM (Electronic Signature) ECG Data Attestation: I personally reviewed and interpreted this ECG as follows: (Normal sinus rhythm, 79 beats per minute. QT corrected 426 milliseconds. No ischemia, no infarct.) Prior ECG tracings: available for review Interpretation: EKG from 09/22 1:00 p.m. shows normal sinus rhythm with sinus arrhythmia at 69 beats per minute. QT corrected 424 milliseconds, stable. No ischemia, no infarct. Discharge Plan Discharge Clinical Impression: Acute anxiety Patient Disposition: Home, Self-Care Condition: Stable Instructions: Generalized Anxiety Disorder (ED), Cognitive Behavioral Therapy (ED) Additional Instructions: Recommend getting scheduled with a primary care provider either in town here or where you live in [place]. Need to discuss your underlying anxiety and your physical symptoms that go with your anxiety. I do believe that you should stay on the metoprolol, probably be on the 20/5 mg which was recommended by a cardiology follow-up per your report. Your primary care provider can send you to cardiology if needed. Do recommend consideration of meditation and cognitive behavioral therapy for your anxiety. Activity Level: No Restrictions Discharge Diet: Regular Prescriptions: No Action vilazodone [Viibryd] 10 mg tablet 10 mg PO DAILY Rx Instructions: must administer with a meal/food melatonin 10 mg capsule 10 mg PO QHS metoprolol succinate 25 mg tablet extended release 24 hr 12.5 mg PO DAILY Qty: 14 0RF Follow Up/Referrals: Provider,Not a Local [Primary Care Provider, Family Practice] Stand Alone Forms: [employer] Info Instructions
[2024-10-08 18:20] VITALS: O2SAT 100
--- NOTE | 2024-10-08 18:20 | CRLHL7_ITS ---
For Patients: As a result of the Century Cures Act, medical imaging exams and procedure reports are released immediately into your electronic medical record. You may view this report before your referring provider. If you have questions, please contact your health care provider. INDICATION: Chest pain. TECHNIQUE: Chest 1 views. COMPARISON: May 08, 2019. FINDINGS: Cardiovascular and mediastinum: Heart size and vasculature are normal in caliber and appearance. Lungs and pleural spaces: Lungs are clear. No sign of infiltrate or mass. No sign of pleural effusion. No pneumothorax. Bones and soft tissues: No significant findings. IMPRESSION: No acute or significant findings. Dictated by Kenneth Hernandez MD @ 10/08/2024 6:41:08 PM (Electronically Signed)
[2024-10-08 18:41] LABS: Lactate* 1.1 mmol/L (0.5-1.9)
[2024-10-08 18:44] LABS: Hematocrit* 41.3 % (33.0-51.0); Hemoglobin* 14.1 gm/dL (12.0-16.0); Immature Granulocytes Abs Auto 0.01 K/uL (0.00-0.30); Immature Granulocytes Pct Auto 0.1 %; Lymphocytes Absolute Auto 1.60 K/uL (0.90-2.90); Mean Corpuscular HGB Conc 34 gm/dL (32-36); Mean Corpuscular Hemoglobin 30 pg (26-34); Mean Corpuscular Volume 88 fL (80-100); RDW Coefficient of Variation % 11.8 % (11.5-15.5); Red Blood Count* 4.72 m/uL (4.00-5.20); White Blood Count* 6.95 K/uL (4.50-11.00)
[2024-10-08 18:47] VITALS: PULSE 69; RESP 13; O2SAT 100
[2024-10-08 18:47] LABS: Slide Review Reflex No
[2024-10-08 19:03] LABS: Albumin* 5.0 g/dL (3.3-5.0); Chloride* 104 mmol/L (96-114)
[2024-10-08 19:04] LABS: Potassium* 3.8 mmol/L (3.6-5.1); Sodium* 138 mmol/L (135-149)
[2024-10-08 19:06] LABS: Alanine Aminotransferase* 38 U/L (4-35); Aspartate Amino Transferase* 41 U/L (12-35); Blood Urea Nitrogen* 12 mg/dL (5-24); Creatinine* 0.5 mg/dL (0.5-1.5); Est. Creatinine Clearance* 181.98; Estimated Glomerular Filt Rate 136 ml/min
[2024-10-08 19:07] LABS: Alkaline Phosphatase* 86 U/L (40-150); Anion Gap 9 mEq/L (7-15); Bilirubin Total* 1.0 mg/dL (0.1-1.5); Calcium* 9.9 mg/dL (8.4-10.6); Carbon Dioxide* 25 mmol/L (20-32); Glucose* 98 mg/dL (60-115); Total Protein* 8.5 g/dL (6.0-8.3)
[2024-10-08 19:18] LABS: D Dimer Quantitative* < 0.27 ug/ml (0.00-0.50)
[2024-10-08 19:18] LABS: NT Pro B Type NatriureticPept* < 20 pg/mL (See Note)
== END 2024-10-08 19:46 | disposition home or self-care (01) ==
PROVIDERS: Emergency Provider Family Medicine
DX: F41.9 Anxiety disorder, unspecified (principal); R07.9 Chest pain, unspecified
CPT/HCPCS: 36415; 71045; 80053; 83605; 83735; 83880; 84484; 85025; 85379; 86140; 93005; 94761; 99284; 99285